=== PATIENT | male | born 1945 | race Caucasian/White ===

== ENCOUNTER 2017-06-17 05:55 | Day surgery (SDC) | payer OTHER, BC ==
[2017-06-14 11:03] VITALS: BMI 25.7
[2017-06-17] MEDS ORDERED: MIDAZOLAM HCL 2 MG/2 ML SINGLE DOSE VIAL ONE ×2 (06:30→08:35)
[2017-06-17] MEDS ORDERED: ROPIVACAINE HCL 0.5% 30ML VIAL ONE (06:30)
[2017-06-17] MEDS ORDERED: DEXAMETHASONE SOD PHOSPHATE/PF 10 MG/ML SDV ONE (06:30)
[2017-06-17] MEDS ORDERED: PROPOFOL 20 ML ONE ×4 (07:15)
[2017-06-17] MEDS ORDERED: SUCCINYLCHOLINE CHLORIDE 200 MG/10 ML VIAL ONE (07:16)
[2017-06-17] MEDS ORDERED: LIDOCAINE HCL/PF 2% SDV 5ML VIAL ONE (07:16)
[2017-06-17] MEDS ORDERED: ePHEDrine SULFATE 50 MG/1 ML AMPULE ONE (07:16)
[2017-06-17] MEDS ORDERED: ceFAZolin SODIUM 1 GM VIAL ONE (07:16)
[2017-06-17] MEDS ORDERED: SODIUM CHLORIDE 0.9% P/F 10 ML VIAL IJ ONE (07:23)
[2017-06-17] MEDS ORDERED: EPINEPHrine 1:1,000 1 MG/1 ML - 30ML VIAL (INJECTION) ONE (07:28)
[2017-06-17] MEDS ORDERED: LIDOCAINE HCL 1%, 10 MG/ML (20ML VIAL) ONE (07:41)
[2017-06-17] MEDS ORDERED: methylPREDNISolone ACET (DEPO) 40 MG/1 ML VIAL ONE (07:41)
[2017-06-17] MEDS ORDERED: TRIAMCINOLONE ACET 40MG/1ML VIAL ONE (07:41)
[2017-06-17] MEDS ORDERED: oxyCODONE HCL 5 MG TABLET ONE (10:14)
[2017-06-17 11:44] VITALS: PULSE 67; TEMP 96.7
[2017-06-17 12:04] VITALS: BP 130/62
--- NOTE | 2017-06-19 22:07 | OP ---
DATE OF OPERATION: 06/17/2017 LOCATION: [facility]. SURGEON: Gordy Montilla MD BLOCK ENGRAVER: LUIS EDUARDO Sahu PREOPERATIVE DIAGNOSES: 1. Right shoulder rotator cuff tear. 2. Right shoulder impingement syndrome. 3. Right shoulder acromioclavicular joint disease. 4. Right shoulder superior labral tear, anterior and posterior, with synovitis. POSTOPERATIVE DIAGNOSES: 1. Right shoulder rotator cuff tear. 2. Right shoulder impingement syndrome. 3. Right shoulder acromioclavicular joint disease. 4. Right shoulder superior labral tear, anterior and posterior, with synovitis. PROCEDURE: 1. Right shoulder arthroscopy with arthroscopic rotator cuff repair. 2. Right shoulder arthroscopy with subacromial decompression. 3. Right shoulder arthroscopy with resection of distal clavicle, acromioclavicular joint. 4. Right shoulder arthroscopy with debridement. FINDINGS: 1. Full-thickness rotator cuff tear, supraspinatus. 2. Superior labral tear, anterior and posterior, with extension to the biceps tendon. 3. Partial biceps tear, 10%. 4. Type 2 to 3 acromion with anterolateral spurring. 5. Inferior spurs of clavicle, acromioclavicular joint disease. 6. Posterior labral fraying. 7. Partial tear, subscapularis tendon. 8. Thickened scar tissue, anterior subacromial space. REPAIR TYPE: Single mattress sutures placed into the supraspinatus and secured to a bleeding bone bed using the Opus technique. PROCEDURE: Informed consent was obtained. The patient was taken to the operating room where the upper extremity was prepped and draped in a sterile fashion. The shoulder was manipulated for a full range of motion. Posterior incision portal was made and directed to glenohumeral joint. Under direct visualization, an anterior incision and portal was made. Extensive synovitis, as well as chondral injuries throughout the glenohumeral joint were dbrided and removed. Any identified labral injuries, including superior labral tear, anterior and posterior, and anterior labrum torn portions were removed as well. Rotator cuff was visualized and noted to have full-thickness tear. The edges were debrided. Posterior incision portal was redirected to subacromial space where a lateral incision portal was made. Excessive and thickened scar tissue noted throughout the subacromial space, including bursal and scar tissue, were removed. The type 2 acromion was converted into a flattened type 1 using a mae for subacromial decompression. Distal inferior spur at the distal clavicle was also dbrided with the use of accessory portal in the AC joint. The edges of the rotator cuff were identified. Sutures were placed into the rotator cuff and secured using anchors throughout the greater tuberosity. Prior to securing, a bleeding bed was made using a small mae, creating a bleeding surface of the rotator cuff insertion. The shoulder was then drained. A single suture as placed on all portals and a sterile dressing was placed. The patient was transferred to the recovery room without complication. GORDY MONTILLA M.D. [id number]
== END 2017-06-17 11:25 | disposition home or self-care (01) ==
LOC: FASU 05:55
PROVIDERS: ATTEND Orthopaedic Surgery
PROC: 0LQ24ZZ Repair Left Shoulder Tendon, Percutaneous Endoscopic Approach (ICD-10-PCS; 2017-06-17)
PROC: 0PBB4ZZ Excision of Left Clavicle, Percutaneous Endoscopic Approach (ICD-10-PCS; 2017-06-17)
PROC: 0RBK4ZZ Excision of Left Shoulder Joint, Percutaneous Endoscopic Approach (ICD-10-PCS; 2017-06-17)
PROC: 0RNK4ZZ Release Left Shoulder Joint, Percutaneous Endoscopic Approach (ICD-10-PCS; principal; 2017-06-17 08:17)
DX: M75.102 Unspecified rotator cuff tear or rupture of left shoulder, not specified as traumatic (principal); M75.52 Bursitis of left shoulder; M19.012 Primary osteoarthritis, left shoulder; M24.112 Other articular cartilage disorders, left shoulder